=== PATIENT | female | born 1990 | race Two or more races ===

== ENCOUNTER 2016-06-29 17:24 | Emergency (ER) | payer OTHER ==
--- NOTE | 2016-06-29 18:02 | RAD ---
ANKLE-LEFT 3 VIEW History: Left ankle injury. Comparison: None. Findings: Views of the left ankle were obtained.The osseous structures appear to be intact. The mortise joint is normal. The talar dome contour appears to be within that expected. No focal soft tissue abnormalities are identified. Impression: 1. Negative views of the left ankle.
== END 2016-06-29 18:19 | disposition home or self-care (01) ==
LOC: ED 17:24
DX: S93.402A Sprain of unspecified ligament of left ankle, initial encounter (principal); X50.0XXA Overexertion from strenuous movement or load, initial encounter; Y93.02 Activity, running; Y92.828 Other wilderness area as the place of occurrence of the external cause